=== PATIENT | male | born 1975 | race Caucasian/White ===

== ENCOUNTER 2020-08-07 09:28 | Emergency (ER) | payer MEDICAID, OTHER ==
[~2020-08-07] VITALS: Ht 177.8 cm; Wt 68.0 kg
[2020-08-07] MEDS ORDERED: LORazepam 2MG/ML-1ML VIAL IM ONE ×2 (09:45)
[2020-08-07 10:01] LABS: Basophils # (auto) 0 10 ^3/uL (0-0.2); Basophils % (auto) 0.2 % (0.0-2.0); Eosinophils # (auto) 0.2 10 ^3/uL (0-0.8); Eosinophils % (auto) 2.7 % (0.0-7.0); Hematocrit 45.2 % (41.0-53.0); Lymphocytes # (auto) 2.4 10 ^3/uL (0.4-5.4); Lymphocytes % (auto) 36.1 % (10.0-50.0); Mean Corpuscular Hemoglobin 30.5 pg (28.0-32.0); Mean Corpuscular Hgb Conc. 35.3 g/dL (32.0-36.0); Mean Corpuscular Volume 86.3 fL (80.0-100.0); Monocytes # (auto) 1.1 10 ^3/uL (0-1.3); Monocytes % (auto) 16.5 % (0.0-12.0); Neutrophils # (auto) 2.9 10 ^3/uL (1.6-8.6); Neutrophils % (auto) 44.5 % (37.0-80.0); Nucleated Red Blood Cells % 0.1 %; Platelet Count (auto) 269 10^3/uL (140-450); Red Blood Cells 5.24 10^6/uL (4.5-5.90); Red Cell Distribution Width 14.4 % (11.8-14.3); White Blood Cell 6.6 10^3/uL (4.4-10.8)
[2020-08-07 10:17] LABS: Anion Gap 6 (5-15); Blood Urea Nitrogen 21 mg/dL (7-18); Calcium 9.6 mg/dL (8.5-10.1); Carbon Dioxide 30 mmol/L (21-32); Chloride 103 mmol/L (98-107); Glucose 100 mg/dL (74-106); Potassium 4.5 mmol/L (3.5-5.1); Sodium 139 mmol/L (136-145)
[2020-08-07 10:18] LABS: Salicylate < 1.7 mg/dL (2.8-20.0)
[2020-08-07 10:19] LABS: Acetaminophen < 2.0 ug/mL (10-30)
[2020-08-07 10:24] LABS: Alanine Aminotransferase 18 U/L (16-61); Alkaline Phosphatase 92 U/L (45-117); Aspartate Aminotransferase 18 U/L (15-37); BUN/Creatinine Ratio 19.8; Bilirubin, Total 0.3 mg/dL (0.2-1.0); Blood Alcohol < 3.0 mg/dL (0-5); GFR African American 98 mL/min; GFR Non-African American 81 mL/min; Total Protein 7.7 g/dL (6.4-8.2)
[2020-08-07] MEDS ORDERED: SODIUM CHLORIDE 0.9% 1,000 ML IV ONE (10:30)
[2020-08-07 11:00] VITALS: BP 144/79
[2020-08-07 12:23] LABS: Urine Bacteria NONE SEEN /hpf (None Seen); Urine Blood Negative /uL (Negative); Urine Specific Gravity 1.025 (1.001-1.035); Urine WBC 8 /hpf (0 - 3)
[2020-08-07 12:47] LABS: Alcohol, Urine < 3.0 mg/dL (0-10); Amphetamine Screen, Urine POSITIVE (NEGATIVE); Barbiturate Scree,Urine NEGATIVE (NEGATIVE); Benzodiazephine Screen, Urine NEGATIVE (NEGATIVE); Cannabinoid Screen, Urine NEGATIVE (NEGATIVE); Cocaine Screen, Urine NEGATIVE (NEGATIVE); Phencyclidine Screen, Urine NEGATIVE (NEGATIVE)
[2020-08-07 12:54] LABS: Opiate Scree,Urine NEGATIVE (NEGATIVE)
== END 2020-08-07 12:09 | disposition home or self-care (01) ==
LOC: ER 09:28 → EDBD 09:28 → ER 12:09
DX: F41.9 Anxiety disorder, unspecified (principal); F15.10 Other stimulant abuse, uncomplicated; F17.210 Nicotine dependence, cigarettes, uncomplicated; R42 Dizziness and giddiness
CPT/HCPCS: 36415; 71045; 80053; 80307; 80320; 80329; 81001; 84484; 85025; 96360; 96372; 99284; J7030

== ENCOUNTER 2020-10-25 22:36 | Emergency (ER) | payer MEDICAID ==
[~2020-10-25] VITALS: Ht 177.8 cm; Wt 72.6 kg
[2020-10-25 22:40] VITALS: BP 120/95
== END 2020-10-25 22:56 | disposition left against medical advice (07) ==
LOC: ER 22:39
DX: F10.929 Alcohol use, unspecified with intoxication, unspecified (principal); Z53.21 Procedure and treatment not carried out due to patient leaving prior to being seen by health care provider